=== PATIENT | female | born 1965 | race Caucasian/White ===

== ENCOUNTER → 2020-09-03 | Outpatient (CLI) | payer BC ==
[2020-09-03 13:51] VITALS: BP 143/81; PULSE 73; RESP 16; TEMP 98.2; BMI 60.0
[2020-09-03 15:40] LABS: HCT 39.6 % (34.0-46.0); HGB 12.7 gm/dL (11.4-16.0); MCH 26.1 pg (25.0-35.0); MCV 81.6 fL (80.0-100.0); Mean Platelet Volume 6.8; Platelet Count 279 k/uL (150-450); RBC 4.85 m/uL (3.80-5.40); RDW 14.9 % (11.5-15.5); WBC 9.5 k/uL (3.8-10.6)
--- NOTE | 2020-09-03 17:23 | P.HPBAR ---
Bariatric H&P - History & Physicial H&P Date: 09/03/20 History & Physicial: Visit/CC: Initial Visit Patient initial contact: Initial weight: 173.726 kg Initial weight in pounds: 383.00 Height: 5 ft 7 in Initial BMI: 60.0 Last weight: Current weight: 173.726 kg Current weight in pounds: 383.00 Current BMI: 60.0 [place] body weight (based on NIH guidelines): 61.235 kg Excess body weight loss: 0.0% The patient is a 55 year-old F who presents for Bariatric Assessment. Patient presents to discuss weight loss surgery. Patient has suffered with her morbid obesity for many years. Her father had gastric bypass in the 80s and did fairly well. He has been supportive of her plans for bariatric surgery. Current BMI of 60. Nonsmoker 5 years. History of hypertension, borderline diabetes, asthma, fibromyalgia, sleep apnea. History of mild reflux at times. Last endoscopy by Dr. Montgomery 4 years ago. No known hiatal hernia. No history of DVT or dysphagia. Past abdominal surgeries include tubal ligation and appendectomy. Review of Systems The patient denies any acute changes in vision or hearing, no dysphagia or odynophagia, no chest pain or shortness of breath, no dysuria or hematuria, no headache, no runny nose, no rectal bleeding or melena, no unexplained weight loss Past Medical History Past Medical History: Hypertension, Sleep Apnea/CPAP/BIPAP History of Any Multi-Drug Resistant Organisms: None Reported Past Surgical History: Tubal Ligation Past Anesthesia/Blood Transfusion Reactions: No Reported Reaction Past Psychological History: Anxiety, Depression Smoking Status: Former smoker Past Alcohol Use History: None Reported Additional Past Alcohol Use History / Comment(s): quit smoking 2014 Past Drug Use History: None Reported Surgical - Exam Vital Signs Temp Pulse Resp BP 98.2 F 73 16 143/81 09/03/20 13:47 09/03/20 13:47 09/03/20 13:47 09/03/20 13:47 Physical exam: General: Well-developed, well-nourished HEENT: Normocephalic, sclerae nonicteric Abdomen: Nontender, nondistended Extremities: No edema Neuro: Alert and oriented Results - Labs 09/03/20 14:58 Bariatric Assessment & Plan (1) Morbid obesity with BMI of 60.0-69.9, adult Narrative/Plan: 55-year-old female with morbid obesity. Surgical options reviewed in detail. Both gastric bypass and sleeve gastrectomy reviewed as surgical options. Risks and benefits of both procedures discussed. Patient remains interested in sleeve gastrectomy. We will plan preoperative EGD. Patient to be seen by her primary care physician. Medical clearance and support documentation will be obtained. The risks of bleeding, infection, stenosis, stricture, leak, abscess, fistula formation, peritonitis, poor weight loss, reflux, vomiting, conversion to an open procedure, aborting sleeve gastrectomy, ND, PE, DVT, and were discussed. The patient understands and wishes to proceed. Status: Acute Bariatric Checklist Checklist: Plan: Checklist: EGD: 1. Hiatal hernia: 2. H. Pylori: HgbA1c: Vitamin D: Smoking: Primary care physician referral: Monica Psychiatry clearance: Cardiology clearance: Sleep study: Diet journal: VTE risk score: VTE risk level: Rehab needs at discharge:
[2020-09-04 02:19] LABS: African American GFR (CKD) 96.2 (60.0-200.0); Albumin 4.4 g/dL (3.80-4.90); Albumin/Globulin Ratio 1.83 (1.60-3.17); BUN/Creat Ratio 31.25 Ratio (12.00-20.00); Calcium 10.5 mg/dL (8.7-10.3); Globulin 2.4 g/dL (1.6-3.3); Potassium 4.2 mmol/L (3.5-5.5); Total Bilirubin 0.3 mg/dL (0.3-1.2); Total Protein 6.8 g/dL (6.2-8.2)
[2020-09-04 04:20] LABS: Hemoglobin A1C 5.1 % (4.0-6.0)
== END | disposition home or self-care (01) ==
LOC: BARWHC3 13:31
PROVIDERS: ATTEND Surgery
DX: E66.01 Morbid (severe) obesity due to excess calories (principal); E55.9 Vitamin D deficiency, unspecified; K90.89 Other intestinal malabsorption; D50.8 Other iron deficiency anemias; Z68.44 Body mass index [BMI] 60.0-69.9, adult
CPT/HCPCS: 80053; 82306; 82607; 82746; 83036; 83540; 84425; 85027; 93005; 99201

== ENCOUNTER 2020-09-29 09:00 | Day surgery (SDC) | payer BC ==
[2020-09-28 08:46] VITALS: BMI 59.0
[~2020-09-29 09:00] MED LIST: LACTATED RINGERS 1,000 ML IV SCH
[2020-09-29 10:16] VITALS: RESP 18; TEMP 97.4
[2020-09-29] MEDS ORDERED: LIDOCAINE 1% (10MG/ML) FOR IV START INTRADERMA ONE (10:29)
[2020-09-29] MEDS ORDERED: PROPOFOL 10 MG/ML 20 ML VIAL IV ONE (10:37)
--- NOTE | 2020-09-29 10:39 | P.GSHP ---
History of Present Illness H&P Date: 09/29/20 Chief Complaint: GERD, presurgical Patient here today for upper endoscopy. She has not had one recently. Patient complains of mild intermittent reflux. Being evaluated for possible sleeve gastrectomy. No dysphagia. Past Medical History Past Medical History: Hypertension, Sleep Apnea/CPAP/BIPAP Additional Past Medical History / Comment(s): to f/u with roll plugger r/t recent ekg 10/05/20 History of Any Multi-Drug Resistant Organisms: None Reported Past Surgical History: Appendectomy, Tubal Ligation, Uterine Ablation Past Anesthesia/Blood Transfusion Reactions: No Reported Reaction Smoking Status: Former smoker Medications and Allergies Home Medications Medication Instructions Recorded Confirmed Type ALPRAZolam [Xanax] 0.25 mg PO DAILY PRN 09/03/20 09/29/20 History Escitalopram [Lexapro] 20 mg PO DAILY 09/03/20 09/29/20 History hydroCHLOROthiazide [Hydrodiuril] 12.5 mg PO DAILY 09/03/20 09/29/20 History traZODone HCL [TraZODone HCl] 50 mg PO HS 09/03/20 09/29/20 History Ergocalciferol (Vitamin D2) 50,000 unit PO WEEKLY 09/08/20 09/29/20 History [Vitamin D2 (50,000 Iu)] Cider Vinegar [Apple Cider Vinegar] 300 mg PO DAILY 09/28/20 09/29/20 History Fluticasone Nasal [place] [Flonase 1 spray EA NOSTRIL DAILY 09/28/20 09/29/20 History Nasal [place]] Multivitamins, Thera [Multivitamin 1 tab PO DAILY 09/28/20 09/29/20 History (formulary)] Allergies Allergy/AdvReac Type Severity Reaction Status Date / Time No Known Allergies Allergy Verified 09/29/20 10:19 Surgical - Exam Vital Signs Temp Pulse Resp BP Pulse Ox 97.4 F L 69 18 152/72 97 09/29/20 10:14 09/29/20 10:14 09/29/20 10:14 09/29/20 10:14 09/29/20 10:14 Physical exam: General: Well-developed, well-nourished HEENT: Normocephalic, sclerae nonicteric Abdomen: Nontender, nondistended Extremities: No edema Neuro: Alert and oriented Assessment and Plan (1) GERD (gastroesophageal reflux disease) Narrative/Plan: Will proceed with upper endoscopy Current Visit: Yes Status: Acute Code(s): K21.9 - GASTRO-ESOPHAGEAL REFLUX DISEASE WITHOUT ESOPHAGITIS SNOMED Code(s): 049618393
--- NOTE | 2020-09-29 10:50 | P.PCN ---
Date of Procedure: 09/29/20 Procedure(s) Performed: Preoperative Dx: GERD, presurgical Postoperative Dx: Gastritis Procedure: EGD with Bx Anesthesia: Sedation Endoscopist: Dr. Alexander Specimens: Antrum Endoscopic Procedure: The patient was on the endoscopy table in the left decubitus position. The Olympus gastroscope was inserted into the oropharynx and passed under direct visualization to the region of the third portion of the duodenum. From that point the scope was slowly withdrawn inspecting all surfaces carefully. There were no neoplastic inflammatory or polypoid lesions throughout the duodenum. The pylorus was widely patent. The stomach was carefully inspected. There was gastritis present. A biopsy of the antrum took place to rule out H. pylori. Retroflexion revealed a normal hiatus. The esophagus was then carefully examined. There were no neoplastic inflammatory or polypoid lesions throughout the visualized esophagus. The patient was then taken to the recovery room in stable condition per anesthesia guidelines. Recommendations: Await biopsy results. Follow-up bariatric center.
[2020-09-29 11:19] VITALS: BP 120/76; PULSE 70
== END 2020-09-29 11:45 | disposition home or self-care (01) ==
LOC: ORWHC2ENDO 09:00
PROVIDERS: ATTEND Surgery
DX: K29.50 Unspecified chronic gastritis without bleeding (principal); K31.9 Disease of stomach and duodenum, unspecified; K21.9 Gastro-esophageal reflux disease without esophagitis; I10 Essential (primary) hypertension; J45.909 Unspecified asthma, uncomplicated; G47.33 Obstructive sleep apnea (adult) (pediatric); M79.7 Fibromyalgia; F41.9 Anxiety disorder, unspecified; F32.9 Major depressive disorder, single episode, unspecified; E66.01 Morbid (severe) obesity due to excess calories; Z68.43 Body mass index [BMI] 50.0-59.9, adult; Z79.899 Other long term (current) drug therapy; Z98.51 Tubal ligation status; Z90.49 Acquired absence of other specified parts of digestive tract; Z98.890 Other specified postprocedural states; Z87.891 Personal history of nicotine dependence
CPT/HCPCS: 88305; 43239; J2704

== ENCOUNTER → 2020-10-13 | Outpatient (CLI) | payer BC ==
[2020-10-13 14:26] VITALS: BP 150/83; PULSE 78; RESP 16; TEMP 98; BMI 60.1
--- NOTE | 2020-10-13 17:16 | P.BASOAP ---
Subjective Progress Note Date: 10/13/20 Principal diagnosis: Morbid obesity Patient returns after recent EGD on 09/29. Gastritis seen. No H. pylori. Recently started chemo diet. Still interested in proceeding with sleeve gastrectomy. Objective - Vital Signs Vital signs: Vital Signs Temp 98 F 10/13/20 14:23 Pulse 78 10/13/20 14:23 Resp 16 10/13/20 14:23 BP 150/83 10/13/20 14:23 Pulse Ox Intake & Output 10/12/20 10/13/20 10/13/20 18:59 06:59 18:59 Weight 174.179 kg - Exam Abdomen: Soft, nontender, nondistended Assessment/Plan (1) Morbid obesity with BMI of 60.0-69.9, adult Narrative/Plan: 55-year-old female with morbid obesity and associated comorbidities. Patient still interested in sleeve gastrectomy. Surgical consent form with associated risks reviewed in detail. All questions answered. Tentatively plan sleeve in December after her trip to [place]. Discussed laparoscopic and robotic approaches. Patient is agreeable. Plan: Date: 10/13/20 Initial Weight: 173.726 kg Initial BMI: 60.0 Current Weight: 174.179 kg Current BMI: 60.1 Type of Surgery: Total Volume in Band: Previous Volume: Volume Removed: Volume Added: Band Size:
== END | disposition home or self-care (01) ==
LOC: BARWHC3 13:53
PROVIDERS: ATTEND Surgery
DX: E66.01 Morbid (severe) obesity due to excess calories (principal); Z68.44 Body mass index [BMI] 60.0-69.9, adult
CPT/HCPCS: 99211

== ENCOUNTER → 2020-10-19 | Outpatient (CLI) | payer BC ==
[2020-10-19 12:56] VITALS: BMI 60.3
== END ==
LOC: BARWHC3 08:45
PROVIDERS: ATTEND Surgery
DX: E66.01 Morbid (severe) obesity due to excess calories (principal); Z71.3 Dietary counseling and surveillance
CPT/HCPCS: 97804

== ENCOUNTER → 2020-12-29 | Outpatient (CLI) | payer BC ==
[2020-12-29 14:52] VITALS: BP 141/77; PULSE 82; TEMP 98.5; BMI 60.0
--- NOTE | 2020-12-29 16:05 | P.BASOAP ---
Subjective Progress Note Date: 12/29/20 Principal diagnosis: Morbid obesity Patient here for evaluation of morbid obesity. Patient is scheduled for sleeve gastrectomy next Monday. Patient recently has lost some weight after a trip to [place] for a service. She did gain some weight prior to that however. She was unable to walk much during that vacation in the airport and had to use a wheelchair. She is currently on a liquid diet. No change in medications. Objective - Vital Signs Vital signs: Vital Signs Temp 98.5 F 12/29/20 14:50 Pulse 82 12/29/20 14:50 Resp BP 141/77 12/29/20 14:50 Pulse Ox Intake & Output 12/28/20 12/29/20 12/29/20 18:59 06:59 18:59 Weight 173.726 kg - Exam Abdomen: Soft, nontender, nondistended Assessment/Plan (1) Morbid obesity with BMI of 60.0-69.9, adult Narrative/Plan: Options once again reviewed with patient. She remains interested in proceeding with laparoscopic sleeve gastrectomy. Surgery scheduled next Monday. The risks of bleeding, infection, stenosis, stricture, leak, abscess, fistula formation, peritonitis, poor weight loss, reflux, vomiting, conversion to an open procedure, aborting sleeve gastrectomy, ID, PE, DVT, and were discussed. The patient understands and wishes to proceed. Plan: Date: 12/29/20 Initial Weight: 173.726 kg Initial BMI: 60.0 Current Weight: 173.726 kg Current BMI: 60.0 Type of Surgery: Total Volume in Band: Previous Volume: Volume Removed: Volume Added: Band Size:
== END ==
LOC: BARWHC3 14:14
PROVIDERS: ATTEND Surgery
DX: E66.01 Morbid (severe) obesity due to excess calories (principal); Z68.44 Body mass index [BMI] 60.0-69.9, adult
CPT/HCPCS: 99211

== ENCOUNTER → 2020-12-29 | Outpatient (CLI) | payer BC ==
[2020-12-29 15:26] LABS: Basophils # (A) 0.1 k/uL (0-0.2); Basophils % (A) 1 %; Eosinophils # (A) 0.2 k/uL (0-0.7); Eosinophils % (A) 2 %; HGB 13.6 gm/dL (11.4-16.0); Lymphocytes # (A) 2.1 k/uL (1.0-4.8); Lymphocytes % (A) 24 %; MCH 26.4 pg (25.0-35.0); MCHC 32.3 g/dL (31.0-37.0); MCV 81.6 fL (80.0-100.0); Mean Platelet Volume 7.1; Monocytes # (A) 0.4 k/uL (0-1.0); Monocytes % (A) 4 %; Neutrophils % (A) 68 %; Platelet Count 270 k/uL (150-450); RBC 5.15 m/uL (3.80-5.40); WBC 8.8 k/uL (3.8-10.6)
[2020-12-29 15:55] LABS: ALT 43 U/L (4-34); AST 34 U/L (14-36); African American GFR (CKD) >90 (>60 ml/min/1.73 sqM); Albumin 4.4 g/dL (3.5-5.0); Alkaline Phosphatase 97 U/L (38-126); Anion Gap 10 mmol/L; Blood Urea Nitrogen 18 mg/dL (7-17); Calcium 10.3 mg/dL (8.4-10.2); Carbon Dioxide 26 mmol/L (22-30); Chloride 103 mmol/L (98-107); Glucose 101 mg/dL (74-99); Non-African American GFR(CKD) >90 (>60 ml/min/1.73 sqM); Sodium 139 mmol/L (137-145); Total Bilirubin 0.5 mg/dL (0.2-1.3); Total Protein 7.5 g/dL (6.3-8.2)
[2020-12-29 16:14] LABS: Potassium 4.3 mmol/L (3.5-5.1)
[2020-12-30 05:26] LABS: Hemoglobin A1C 5.1 % (4.0-6.0)
== END | disposition home or self-care (01) ==
LOC: LABWHC1 14:38
PROVIDERS: ATTEND Surgery
DX: Z01.812 Encounter for preprocedural laboratory examination (principal)
CPT/HCPCS: 36415; 80053; 83036; 85025

== ENCOUNTER → 2021-01-01 | Outpatient (CLI) | payer BC | END | disposition home or self-care (01) | LOC: LABPAT 14:11 | PROVIDERS: ATTEND Surgery | DX: Z53.9 Procedure and treatment not carried out, unspecified reason (principal) | CPT/HCPCS: 36415; 86850; 86900; 86901 ==

== ENCOUNTER 2021-01-04 07:45 | Inpatient (IN) | payer BC ==
[2020-12-29 08:39] VITALS: BMI 62.3
[~2021-01-04 07:45] MED LIST changes: +ACETAMINOPHEN TAB 500 MG TAB PO PRN; +ENOXAPARIN 40 MG/0.4 ML SYRINGE SQ PRN; +HYDROmorphone 0.5 MG/0.5 ML SYRINGE IVP PRN; -LACTATED RINGERS 1,000 ML IV SCH; +MIDAZOLAM 2 MG/2 ML VIAL IV PRN; +ONDANSETRON 4 MG/2 ML VIAL IVP PRN; +ceFAZolin 3 GM in SODIUM CHLORIDE 0.9% 100 ML IVPB PRN
[2021-01-04] MEDS ORDERED: DEXAMETHASONE SOD PHOSPHATE 4 MG/ML 1 ML VIAL IV ONE (11:57)
[2021-01-04] MEDS: LACTATED RINGERS 1,000 ML IV SCH (11:57)
--- NOTE | 2021-01-04 12:31 | P.GSHP ---
History of Present Illness H&P Date: 01/04/21 Chief Complaint: Morbid obesity 55-year-old female presents for elective sleeve gastrectomy. Patient initially seen in August. Complains of hypertension, borderline diabetes, asthma, fibromyalgia, sleep apnea, mild reflux. BMI 62 at this time. Denies history of DVT or dysphagia. Recent upper endoscopy showed gastritis. Past Medical History Past Medical History: Hypertension, Sleep Apnea/CPAP/BIPAP Additional Past Medical History / Comment(s): to f/u with early childhood teacher r/t recent ekg 10/05/20 History of Any Multi-Drug Resistant Organisms: None Reported Past Surgical History: Appendectomy, Tubal Ligation, Uterine Ablation Past Anesthesia/Blood Transfusion Reactions: No Reported Reaction Additional Past Anesthesia/Blood Transfusion Reaction / Comment(s): dad slower to come out of anesthesia as he got older Past Psychological History: Anxiety, Depression Smoking Status: Former smoker Past Alcohol Use History: None Reported Additional Past Alcohol Use History / Comment(s): quit smoking 2014 Past Drug Use History: None Reported - Past Family History Mother Family Medical History: No Reported History Medications and Allergies Home Medications Medication Instructions Recorded Confirmed Type ALPRAZolam [Xanax] 0.25 mg PO DAILY PRN 09/03/20 01/04/21 History Escitalopram [Lexapro] 20 mg PO DAILY 09/03/20 01/04/21 History traZODone HCL [TraZODone HCl] 50 mg PO HS 09/03/20 01/04/21 History Ergocalciferol (Vitamin D2) 50,000 unit PO WEEKLY 09/08/20 12/30/20 History [Vitamin D2 (50,000 Iu)] Cider Vinegar [Apple Cider Vinegar] 300 mg PO DAILY 09/28/20 12/30/20 History Multivitamins, Thera [Multivitamin 1 tab PO DAILY 09/28/20 12/30/20 History (formulary)] Albuterol Inhaler [Ventolin Hfa 1 puff INHALATION DAILY PRN 12/29/20 12/30/20 History Inhaler] Cannabidiol (Cbd) [Epidiolex] 1 dose PO DAILY PRN 12/29/20 12/30/20 History Allergies Allergy/AdvReac Type Severity Reaction Status Date / Time No Known Allergies Allergy Verified 01/04/21 11:26 Surgical - Exam Vital Signs Temp Pulse Resp BP Pulse Ox 97.1 F L 74 18 140/71 95 01/04/21 11:33 01/04/21 11:33 01/04/21 11:33 01/04/21 11:33 01/04/21 11:33 Physical exam: General: Well-developed, well-nourished HEENT: Normocephalic, sclerae nonicteric Abdomen: Nontender, nondistended Extremities: No edema Neuro: Alert and oriented Assessment and Plan (1) Morbid obesity with BMI of 60.0-69.9, adult Narrative/Plan: Will proceed with laparoscopic, possible open sleeve gastrectomy. The risks of bleeding, infection, stenosis, stricture, leak, abscess, fistula formation, peritonitis, poor weight loss, reflux, vomiting, conversion to an open procedure, aborting sleeve gastrectomy, [place], PE, DVT, and were discussed. The patient understands and wishes to proceed. Current Visit: No Status: Acute Code(s): E66.01 - MORBID (SEVERE) OBESITY DUE TO EXCESS CALORIES; Z68.44 - BODY MASS INDEX [BMI] 60.0-69.9, ADULT SNOMED Code(s): 184742048
[2021-01-04] MEDS ORDERED: MIDAZOLAM 2 MG/2 ML VIAL ONE (14:04)
[2021-01-04] MEDS ORDERED: LIDOCAINE 1% INJ 10MG/ML (20 ML MDV) ONE (14:04)
[2021-01-04] MEDS ORDERED: fentaNYL (PF) 50 MCG/ML 2 ML AMP ONE (14:04)
[2021-01-04] MEDS ORDERED: GLYCOPYRROLATE 0.2 MG/ML 2 ML VIAL ONE (14:04)
[2021-01-04] MEDS ORDERED: ROCURONIUM 10 MG/ML (5 ML VIAL) IV ONE (14:04)
[2021-01-04] MEDS ORDERED: BUPIVACAIN-EPI 0.5%-1:200,000 30 ML VIAL SQ ONE ×2 (14:04)
[2021-01-04] MEDS ORDERED: NEOSTIGMINE 1 MG/ML 10 ML VIAL ONE (14:04)
[2021-01-04] MEDS ORDERED: HYDROmorphone (PF) 1 MG/ML ONE (14:04)
[2021-01-04] MEDS ORDERED: PROPOFOL 10 MG/ML 20 ML VIAL IV ONE (14:04)
[2021-01-04] MEDS ORDERED: SUCCINYLCHOLINE CHLORIDE VIAL 200 MG/10 ML VIAL IV ONE (14:04)
[2021-01-04] MEDS ORDERED: LACTATED RINGERS 1,000 ML IV ONE (15:24)
[2021-01-04] MEDS ORDERED: diphenhydrAMINE 50 MG/ML 1 ML VIAL IVP PRN (15:39)
[2021-01-04] MEDS ORDERED: HYOSCYAMINE ORAL DROPS 1.875 MG/15 ML BOTTLE PO PRN (15:39)
[2021-01-04] MEDS ORDERED: NALOXONE 0.4 MG/ML 1 ML VIAL IV PRN (15:39)
--- NOTE | 2021-01-04 15:44 | P.OP ---
Date of Procedure: 01/04/21 Procedure(s) Performed: PREOPERATIVE DIAGNOSIS: Morbid obesity, GERD, hypertension, asthma, sleep apnea POSTOPERATIVE DIAGNOSIS: Same PROCEDURE: Laparoscopic sleeve gastrectomy SURGEON: Catherine EBL: Minimal ANESTHESIA: General COMPLICATIONS: None OPERATIVE PROCEDURE: Patient was placed in the operating table in the supine position. She was placed under general anesthesia at that time. The abdomen was prepped and draped in sterile fashion after the patient was placed in lithotomy. A 5 mm optical trocar was used to enter the abdominal cavity in the left upper quadrant. Insufflation took place to 15 millimeters mercury. An additional right subxiphoid 5 mm trocar was then placed under direct visuali zation and then removed. 2 additional 5 mm trochars were placed in the right upper quadrant and left upper quadrant under direct visualization and a 15 mm trocar in the supraumbilical location. The liver was retracted using a medium Maye liver retractor through the right subxiphoid trocar site. The hiatus was inspected. The patient had no visible hiatal hernia At that point I moved to the mid aspect of the greater curvature the stomach. The short gastric vasculature was divided using a LigaSure device proximally. I then switched and divided the short gastrics distally to a 3-4 cm from the pylorus. The dissection took place up to the left diaphragmatic crura at that point. The posterior short gastrics were likewise divided using the LigaSure device. Once the stomach was fully mobilized the blunt tipped 40-Bel[place]ian bougie dilator was advanced into the stomach and advanced all the way to the prepyloric location. A black echelon 60 stapler with Endopath staple line reinforcement was utilized and fired tangentially across the antrum taking care to avoid narrowing at the incisura angularis. Subsequent firings of the stapler took place. A total of 5 green echelon 60 staplers with Endopath staple line reinforcement took place proximally staying on the outer edge of our dilator. Once we reached the most proximal portion of the stomach a single firing of the gold echelon 60 stapler without seen guard took place. The oral gastric tube was reinserted. The stomach was insufflated with approximately 100 mL of methylene blue. No evidence of leak or obstruction was seen. Tisseel fibrin glue was used along the length of the staple line. There was a small area of oozing at the distal aspect of the staple line that was controlled using 312 mm clips. The stomach remnant was removed from the 15 mm trocar site without difficulty. The fascia at the 15 more site was closed using interrupted 0 Vicryl sutures with the laparoscopic suture passer and Marcos Talya technique. The insufflation was evacuated. The skin at all 5 incisions were closed using 4-0 Monocryl sutures. Skin glue was then applied. DISPOSITION: Stable to recovery room
[2021-01-04] MEDS ORDERED: ONDANSETRON 4 MG/2 ML VIAL IVP ONE (16:01)
[2021-01-04] MEDS: 0.9% NACL WITH KCL 20 MEQ/L 1,000 ML IV SCH ×2 (16:53→23:01)
[2021-01-04] MEDS: ALBUTEROL NEBULIZED 2.5 MG/3 ML INHALATION SCH ×2 (16:55→21:55)
[2021-01-04] MEDS: ACETAMINOPHEN IV (For NPO) 1,000 MG in EMPTY BAG 1 BAG IVPB SCH (16:58)
[2021-01-04] MEDS: SIMETHICONE 40 MG/0.6 ML DROPS 2,000 MG/30 ML BOTTLE PO PRN (17:56)
[2021-01-04] MEDS: HYDROmorphone 1 MG/ML 1 ML SYRINGE IVP PRN (21:32)
[2021-01-05] MEDS: ACETAMINOPHEN IV (For NPO) 1,000 MG in EMPTY BAG 1 BAG IVPB SCH ×3 (01:13→11:14)
[2021-01-05] MEDS: ENOXAPARIN 40 MG/0.4 ML SYRINGE SQ SCH ×2 (01:13→13:18)
[2021-01-05] MEDS: SIMETHICONE 40 MG/0.6 ML DROPS 2,000 MG/30 ML BOTTLE PO PRN ×3 (01:16→16:48)
[2021-01-05] MEDS: LACTATED RINGERS 1,000 ML IV SCH ×2 (01:41→20:54)
[2021-01-05] MEDS: HYDROmorphone 1 MG/ML 1 ML SYRINGE IVP PRN ×3 (03:30→20:14)
[2021-01-05] MEDS: 0.9% NACL WITH KCL 20 MEQ/L 1,000 ML IV SCH (03:31)
[2021-01-05] MEDS: PANTOPRAZOLE 40 MG/10 ML VIAL IV SCH (07:01)
[2021-01-05] MEDS: 1: MVI, ADULT NO.4 WITH VIT K 10 ML, THIAMINE 100 MG, FOLIC ACID 1 MG, POTASSIUM CHLORID IV SCH ×12 (08:03→20:16)
[2021-01-05] MEDS: ALBUTEROL NEBULIZED 2.5 MG/3 ML INHALATION SCH ×5 (08:04→20:45)
[2021-01-05 09:44] LABS: Basophils # (A) 0.01 X 10*3/uL (0.00-0.10); Basophils % (A) 0.1 %; Eosinophils # (A) 0 X 10*3/uL (0.04-0.35); Eosinophils % (A) 0 %; HCT 37.2 % (37.2-46.3); HGB 11.7 g/dL (12.0-15.0); Lymphocytes # (A) 1.16 X 10*3/uL (0.90-5.00); Lymphocytes % (A) 10.3 %; MCH 26.7 pg (27.0-32.0); MCHC 31.5 g/dL (32.0-37.0); MCV 84.9 fL (80.0-97.0); Mean Platelet Volume 10.1 fL (9.5-12.2); Monocytes # (A) 0.78 X 10*3/uL (0.20-1.00); Monocytes % (A) 6.9 %; Neutrophils # (A) 9.29 X 10*3/uL (1.80-7.70); Neutrophils % (A) 82.2 %; Platelet Count 271 X 10*3/uL (140-440); RBC 4.38 X 10*6/uL (4.10-5.20); RDW 14.8 % (11.5-14.5)
[2021-01-05] MEDS: ONDANSETRON 4 MG/2 ML VIAL IVP PRN ×2 (11:20→20:23)
[2021-01-05] MEDS: LISINOPRIL-HCTZ 10-12.5 MG 1 EACH TAB PO SCH (11:35)
--- NOTE | 2021-01-05 12:51 | P.PN ---
<Olamide Ivey - Last Filed: 01/05/21 12:46> Subjective Progress Note Date: 01/05/21 CHIEF COMPLAINT: Morbid obesity HISTORY OF PRESENT ILLNESS: Patient is status post laparoscopic sleeve gastrectomy. She had her upper GI completed today. Results are pending. She is complaining of some gas pains. Otherwise her pain is controlled. Denies any nausea or vomiting. She denies passing gas or having a bowel movement yet. I she is urinating without difficulty. She has been up and ambulating. Afebrile. WBC 11.30 hemoglobin 11.7 platelets 271 PHYSICAL EXAM: VITAL SIGNS: Reviewed. GENERAL: Well-developed in no acute distress. HEENT: No sclera icterus. Extraocular movements grossly intact. Moist buccal mucosa. Head is atraumatic, normocephalic. ABDOMEN: Soft. Nondistended. Incision sites clean dry and intact NEUROLOGIC: Alert and oriented. Cranial nerves II through XII grossly intact. ASSESSMENT: 1. Morbid obesity status post laparoscopic sleeve gastrectomy 2. GERD 3. Hypertension 4. Asthma 5. Sleep apnea PLAN: -Awaiting upper GI results to start bariatric clear liquid diet -Continue IV fluids -Continue pain medication as needed -Continue the simethicone and Levsin drops -Medicine on consulted for medical management -Encourage patient to ambulate and to use incentive spirometer -GI prophylaxis Protonix and DVT prophylaxis Lovenox Physician Technical Editor note has been reviewed by physician. Signing provider agrees with the documented findings, assessment, and plan of care. Objective - Vital Signs Vital signs: Vital Signs Temp 98.8 F 01/05/21 08:00 Pulse 56 L 01/05/21 08:06 Resp 19 01/05/21 08:00 BP 128/74 01/05/21 08:00 Pulse Ox 92 L 01/05/21 09:01 Intake & Output 01/04/21 01/05/21 01/05/21 18:59 06:59 18:59 Intake Total 1500 Output Total 10 300 Balance 1490 -300 Weight 180.53 kg 180.53 kg Intake: IV 1500 Output: Urine 300 Estimated Blood Loss 10 - Labs CBC & Chem 7: 01/05/21 05:44 Labs: Abnormal Lab Results - Last 24 Hours (Table) 01/05/21 Range/Units 05:44 WBC 11.30 H (4.50-10.00) X 10*3/uL Hgb 11.7 L (12.0-15.0) g/dL MCH 26.7 L (27.0-32.0) pg MCHC 31.5 L (32.0-37.0) g/dL RDW 14.8 H (11.5-14.5) % Immature Gran # 0.06 H (0.00-0.04) X 10*3/uL Neutrophils # 9.29 H (1.80-7.70) X 10*3/uL Eosinophils # 0 L (0.04-0.35) X 10*3/uL <Shayne Alexander - Last Filed: 01/05/21 15:26> Subjective Patient doing well today. Denies nausea or vomiting. Upper GI shows no evidence of leak or obstruction. Begin bariatric liquids. Objective - Vital Signs Vital signs: Vital Signs Temp 97.8 F 01/05/21 13:28 Pulse 60 01/05/21 13:28 Resp 16 01/05/21 13:28 BP 112/73 01/05/21 13:28 Pulse Ox 93 L 01/05/21 13:28 Intake & Output 01/04/21 01/05/21 01/05/21 18:59 06:59 18:59 Intake Total 1500 Output Total 10 300 Balance 1490 -300 Weight 180.53 kg 180.53 kg Intake: IV 1500 Output: Urine 300 Estimated Blood Loss 10 Other: # Voids 1 - Labs CBC & Chem 7: 01/05/21 05:44 01/05/21 05:44 Labs: Abnormal Lab Results - Last 24 Hours (Table) 01/05/21 Range/Units 05:44 WBC 11.30 H (4.50-10.00) X 10*3/uL Hgb 11.7 L (12.0-15.0) g/dL MCH 26.7 L (27.0-32.0) pg MCHC 31.5 L (32.0-37.0) g/dL RDW 14.8 H (11.5-14.5) % Immature Gran # 0.06 H (0.00-0.04) X 10*3/uL Neutrophils # 9.29 H (1.80-7.70) X 10*3/uL Eosinophils # 0 L (0.04-0.35) X 10*3/uL Assessment and Plan (1) Morbid obesity with BMI of 60.0-69.9, adult Current Visit: Yes Status: Acute Code(s): E66.01 - MORBID (SEVERE) OBESITY DUE TO EXCESS CALORIES; Z68.44 - BODY MASS INDEX [BMI] 60.0-69.9, ADULT SNOMED Code(s): 824912250
--- NOTE | 2021-01-05 13:34 | FL ---
EXAMINATION TYPE: FL UGI DATE OF EXAM: 01/05/2021 LIMITED UGI: CLINICAL HISTORY: Morbid Obesity, lap band placed earlier today. TECHNIQUE: Limited esophagram is performed utilizing 5 oz of Omnipaque 350. A total of 39 seconds of fluoroscopic time was utilized during procedure. COMPARISON: None. FINDINGS: The patient swallowed contrast without difficulty or delay. Esophageal peristalsis and mo tility are within normal limits. There is good flow of contrast along the diaphragmatic hiatus into proximal stomach and subsequent flow into gastric sleeve. There is no evidence of contrast extravasa tion to suggest leak. The patient complained of pain and sat down. There is gas in the proximal duode num but contrast was not seen within the proximal duodenum. IMPRESSION: No evidence of leak or significant obstruction status post recent gastric sleeve surgery. Contrast is not seen in the proximal duodenum as the patient sat down. There is gas seen within the proximal duodenum.
[2021-01-05 14:39] LABS: Anion Gap 11.5 mmol/L (4.00-12.00); Calcium 9.1 mg/dL (8.7-10.3); Carbon Dioxide 22.5 mmol/L (21.6-31.8); Non-African American GFR(CKD) 97.5 (60.0-200.0); Phosphorus 3.5 mg/dL (2.4-5.1); Potassium 5.1 mmol/L (3.5-5.5)
--- NOTE | 2021-01-05 16:58 | P.CONS ---
History of Present Illness - Reason for Consult Consult date: 01/05/21 Medical management Requesting physician: Shayne Alexander - Chief Complaint Abdominal surgery - History of Present Illness Consultation: This is a very pleasant 55-year-old patient, follows with Dr. Silvestre. Chronic stable medical conditions include hypertension, obstructive sleep apnea, insomnia, depression and anxiety, chronic foot pain from heel spur, constipation. Patient has undergone laparoscopic sleeve gastrectomy by Dr. Garcia. Postprocedure no nausea vomiting. Slight bloating and gas feeling in the abdomen. Has been out of bed. Patient is pending. Barium Study this morning. Patient has not been taking blood pressure medication because of feeling dehydra nina. At home Review of systems: GEN.: Tired EYES: None HEENT: None NECK: None RESPIRATORY: None CARDIOVASCULAR: None GASTROINTESTINAL: Bloating] GENITOURINARY: Urinary stress incontinence MUSCULOSKELETAL: Bilateral foot pain LYMPHATICS: None HEMATOLOGICAL: None PSYCHIATRY: None NEUROLOGICAL: None Past medical history to include: Hypertension, arthritis sleep apnea, insomnia, constipation, depression and anxiety, urinary stress incontinence, bilateral heel spur Social history: . No history of smoking or alcohol. Physical examination: VITAL SIGNS: 98.8, 57, 19, 1 28 x 74, 95% on 2 L GENERAL: BMI 62.3, reclining in bed, awake, comfortable. EYES: Pupils equal. Conjunctiva normal. HEENT: External appearance of nose and ears normal, oral cavity grossly normal. NECK: JVD not raised; masses not palpable. HEART: Heart sounds muffled; no edema. LUNGS:[ Respiratory rate normal; distant breath sounds. ABDOMEN: Soft, mild tenderness, no guarding rigidity, liver spleen not palpable, no masses palpable. PSYCH: Alert and oriented x3; mood and affect normal. NEUROLOGICAL: Cranial nerves grossly intact; no facial asymmetry, power and sensation grossly intact. LYMPHATICS: No lymph nodes palpable in the axilla and neck INVESTIGATIONS, reviewed in the clinical context: WBC 11.3 hemoglobin 11.7 platelets 271 potassium 5.1 creatinine 0.7 Coronavirus [PCR]-not detected Assessment and plan: -Laparoscopic sleeve gastrectomy Pending barium study upper GI -Morbid obesity BMI 62.3 Weight loss measures -Chronic constipation Laxatives as indicated -Bilateral heel spurs Patient takes CBD on for the same -Chronic urinary stress incontinence -Normocytic anemia We will order iron studies, B12 Further workup as outpatient by Dr. Silvestre -Essential hypertension Importance of taking antihypertensive discussed with the patient. We'll start the patient on Zestoretic /.5 one tablet daily. -Chronic idiopathic insomnia Continue with trazodone -Anxiety and depression Continue with Xanax and Lexapro -Obstructive sleep apnea Continue with CPAP Care was discussed with the patient. Questions answered. Patient to follow-up with Dr. Silvestre upon discharge. Thank you Dr. Garcia Past Medical History Past Medical History: Hypertension, Sleep Apnea/CPAP/BIPAP Additional Past Medical History / Comment(s): to f/u with technology auditor r/t recent ekg 10/05/20 History of Any Multi-Drug Resistant Organisms: None Reported Past Surgical History: Appendectomy, Tubal Ligation, Uterine Ablation Past Anesthesia/Blood Transfusion Reactions: No Reported Reaction Additional Past Anesthesia/Blood Transfusion Reaction / Comm: dad slower to come out of anesthesia as he got older Past Psychological History: Anxiety, Depression Smoking Status: Former smoker Past Alcohol Use History: None Reported Additional Past Alcohol Use History / Comment(s): quit smoking 2014 Past Drug Use History: None Reported Additional Drug Use History / Comment(s): cbd - Past Family History Mother Family Medical History: No Reported History Medications and Allergies Home Medications Medication Instructions Recorded Confirmed Type ALPRAZolam [Xanax] 0.25 mg PO DAILY PRN 09/03/20 01/04/21 History Escitalopram [Lexapro] 20 mg PO DAILY 09/03/20 01/04/21 History traZODone HCL [TraZODone HCl] 50 mg PO HS 09/03/20 01/04/21 History Ergocalciferol (Vitamin D2) 50,000 unit PO WEEKLY 09/08/20 12/30/20 History [Vitamin D2 (50,000 Iu)] Cider Vinegar [Apple Cider Vinegar] 300 mg PO DAILY 09/28/20 12/30/20 History Multivitamins, Thera [Multivitamin 1 tab PO DAILY 09/28/20 12/30/20 History (formulary)] Albuterol Inhaler [Ventolin Hfa 1 puff INHALATION DAILY PRN 12/29/20 12/30/20 History Inhaler] Cannabidiol (Cbd) [Epidiolex] 1 dose PO DAILY PRN 12/29/20 12/30/20 History Allergies Allergy/AdvReac Type Severity Reaction Status Date / Time No Known Allergies Allergy Verified 01/04/21 11:26 Physical Exam Vitals: Vital Signs Temp Pulse Pulse Pulse Pulse Resp BP 01/05/21 09:01 01/05/21 08:06 56 L 01/05/21 08:00 98.8 F 57 L 19 01/05/21 07:30 19 01/05/21 01:52 98.4 F 63 18 01/04/21 21:55 01/04/21 19:46 97.6 F 49 L 16 01/04/21 17:30 60 01/04/21 17:15 54 L 01/04/21 17:05 01/04/21 17:00 50 L 01/04/21 16:46 98.1 F 80 16 01/04/21 16:28 50 L 16 01/04/21 16:15 49 L 16 01/04/21 16:00 48 L 14 01/04/21 15:45 97.0 F L 55 L 12 01/04/21 11:33 97.1 F L 74 18 140/71 BP Pulse Ox 01/05/21 09:01 92 L 01/05/21 08:06 96 01/05/21 08:00 128/74 95 01/05/21 07:30 01/05/21 01:52 147/75 96 01/04/21 21:55 93 L 01/04/21 19:46 144/76 97 01/04/21 17:30 124/72 01/04/21 17:15 102/63 01/04/21 17:05 97 01/04/21 17:00 125/72 01/04/21 16:46 161/74 97 01/04/21 16:28 132/61 99 01/04/21 16:15 131/63 98 01/04/21 16:00 124/58 97 01/04/21 15:45 120/59 96 01/04/21 11:33 95 Intake and Output 01/04/21 01/05/21 01/05/21 22:59 06:59 14:59 Intake Total 400 Output Total 10 300 Balance 390 -300 Intake: IV 400 Output: Urine 300 Estimated Blood Loss 10 Other: Weight 180.53 kg Results CBC & Chem 7: 01/05/21 05:44 01/05/21 05:44 Labs: Abnormal Lab Results - Last 24 Hours (Table) 01/05/21 Range/Units 05:44 WBC 11.30 H (4.50-10.00) X 10*3/uL Hgb 11.7 L (12.0-15.0) g/dL MCH 26.7 L (27.0-32.0) pg MCHC 31.5 L (32.0-37.0) g/dL RDW 14.8 H (11.5-14.5) % Immature Gran # 0.06 H (0.00-0.04) X 10*3/uL Neutrophils # 9.29 H (1.80-7.70) X 10*3/uL Eosinophils # 0 L (0.04-0.35) X 10*3/uL
[2021-01-06] MEDS: ENOXAPARIN 40 MG/0.4 ML SYRINGE SQ SCH ×2 (01:51→13:14)
[2021-01-06] MEDS: 1: MVI, ADULT NO.4 WITH VIT K 10 ML, THIAMINE 100 MG, FOLIC ACID 1 MG, POTASSIUM CHLORID IV SCH ×6 (05:19)
[2021-01-06] MEDS: SIMETHICONE 40 MG/0.6 ML DROPS 2,000 MG/30 ML BOTTLE PO PRN (05:20)
[2021-01-06] MEDS: ALBUTEROL NEBULIZED 2.5 MG/3 ML INHALATION SCH ×2 (07:58→11:23)
[2021-01-06] MEDS ORDERED: bisacodyL 5 MG TABLET.DR PO PRN (08:00)
[2021-01-06 08:01] VITALS: RESP 18
[2021-01-06] MEDS: LISINOPRIL-HCTZ 10-12.5 MG 1 EACH TAB PO SCH (08:24)
[2021-01-06] MEDS: PANTOPRAZOLE 40 MG/10 ML VIAL IV SCH (08:24)
[2021-01-06 11:03] LABS: % Iron Saturation 9.09 (12.00-45.00)
--- NOTE | 2021-01-06 12:53 | P.DS ---
<Olamide Ivey - Last Filed: 01/06/21 12:51> Providers Expected date of discharge: 01/06/21 Hospital Course: Discharge diagnosis 1. Morbid obesity status post laparoscopic sleeve gastrectomy 2. GERD 3. Hypertension 4. Asthma 5. Sleep apnea Hospital course 55-year-old female presents for elective sleeve gastrectomy. Patient initially seen in August. Complains of hypertension, borderline diabetes, asthma, fibromyalgia, sleep apnea, mild reflux. BMI 62 at this time. Denies history of DVT or dysphagia. Recent upper endoscopy showed gastritis. Patient is status post laparoscopic sleeve gastrectomy. She tolerated surgery well. Upper GI showed no evidence of leak or obstruction. She is tolerating bariatric clear liquid diet. Her pain is controlled. She is having flatus. She's afebrile. She is up and ambulating. She is stable for discharge. Please refer to chart for any further details. Physician Braille Typist note has been reviewed by physician. Signing provider agrees with the documented findings, assessment, and plan of care. Patient Condition at Discharge: Stable Plan - Discharge Summary Discharge Rx Participant: Yes New Discharge Prescriptions: New Simethicone 40 mg/0.6 ml Drops [Mylicon Drops] 40 mg PO PCHS PRN #30 ml PRN Reason: Gas Omeprazole [PriLOSEC] 40 mg PO DAILY #30 capsule. Ondansetron Odt [Zofran Odt] 4 mg PO Q8HR PRN #9 tab PRN Reason: Nausea bisacodyL [Dulcolax] 5 mg PO DAILY PRN #10 tablet. PRDov Reason: Constipation HYDROcodone/APAP 5-325MG [[place] 5] 1 each PO Q6HR PRN #10 tab PRN Reason: Pain Lisinopril-Hctz 10-12.5 mg [Zestoretic 10-12.5] 1 each PO DAILY #30 tab Continue ALPRAZolam [Xanax] 0.25 mg PO DAILY PRN PRN Reason: Anxiety traZODone HCL 50 mg PO HS Escitalopram [Lexapro] 20 mg PO DAILY Albuterol Inhaler [Ventolin Hfa Inhaler] 1 puff INHALATION DAILY PRN PRN Reason: Dyspnea Discontinued Ergocalciferol (Vitamin D2) [Vitamin D2 (50,000 Iu)] 50,000 unit PO WEEKLY Multivitamins, Thera [Multivitamin (formulary)] 1 tab PO DAILY Cider Vinegar [Apple Cider Vinegar] 300 mg PO DAILY Cannabidiol (Cbd) [Epidiolex] 1 dose PO DAILY PRN PRN Reason: Anxiety Discharge Medication List ALPRAZolam [Xanax] 0.25 mg PO DAILY PRN 09/03/20 [History] Escitalopram [Lexapro] 20 mg PO DAILY 09/03/20 [History] traZODone HCL 50 mg PO HS 09/03/20 [History] Albuterol Inhaler [Ventolin Hfa Inhaler] 1 puff INHALATION DAILY PRN 12/29/20 [History] HYDROcodone/APAP 5-325MG [[place] 5] 1 each PO Q6HR PRN #10 tab 01/06/21 [Rx] Lisinopril-Hctz 10-12.5 mg [Zestoretic 10-12.5] 1 each PO DAILY #30 tab 01/06/21 [Rx] Omeprazole [PriLOSEC] 40 mg PO DAILY #30 capsule. 01/06/21 [Rx] Ondansetron Odt [Zofran Odt] 4 mg PO Q8HR PRN #9 tab 01/06/21 [Rx] Simethicone 40 mg/0.6 ml Drops [Mylicon Drops] 40 mg PO PCHS PRN #30 ml 01/06/21 [Rx] bisacodyL [Dulcolax] 5 mg PO DAILY PRN #10 tablet. 01/06/21 [Rx] Follow up Appointment(s)/Referral(s): Shalom Silvestre MD [Primary Care Provider] - 1 Week Bariatric [place], [place] [NON-STAFF] - 01/12/21 2:30 am Patient Instructions/Handouts: Nutrition after Bariatric Surgery (DC), Laparoscopic Sleeve Gastrectomy (DC) Activity/Diet/Wound Care/Special Instructions: Medicine service script for blood pressure medication No driving while taking [place] No lifting over 10 pounds You may shower. No soaking or tub baths for 2 weeks Very light activity until you are reevaluated at your follow up appointment with your surgeon No straws or carbonated beverages Cut or crush all pills to the size smaller than a tic tac Hold on taking any vitamins for 1 week Discharge Disposition: HOME SELF-CARE <Shayne Alexander Last Filed: 01/07/21 12:22> Providers Date of admission: 01/04/21 11:12 Attending physician: Shayne Alexander Consults: 01/05/21 10:58 Consult Physician Routine Consulting Provider: Juan Adames Consult Reason/Comments: medical management Do you want consulting provider notified?: Yes Primary care physician: Shalom Silvestre - Discharge Diagnosis(es) (1) Morbid obesity with BMI of 60.0-69.9, adult Status: Acute Hospital Course: As above. Patient doing well. May discharge. Follow-up in 1 week.
[2021-01-06 14:50] VITALS: BP 136/72; PULSE 61; TEMP 98.8
--- NOTE | 2021-01-06 20:03 | P.PN ---
Progress Note - Text Progress Note Date: 01/06/21 - Chief Complaint Abdominal surgery Consultation: This is a very pleasant 55-year-old patient, follows with Dr. Alexander. Chronic stable medical conditions include hypertension, obstructive sleep apnea, insomnia, depression and anxiety, chronic foot pain from heel spur, constipation. Patient has undergone laparoscopic sleeve gastrectomy by Dr. Garcia. Postprocedure no nausea vomiting. Slight bloating and gas feeling in the abdomen. Has been out of bed. Patient is pending. Barium Study this morning. Patient has not been taking blood pressure medication because of feeling dehydrated. Today: Doing well. Has been out of bed. Did tolerate a liquid diet. Did pass flatus. Patient be started on lisinopril HCl. Discussed at length about daily blood pressure monitoring. And follow-up with PCP. Review of systems: Was done for constitutional, cardiovascular, GI, pulmonary. relevant finding as above Current medications reviewed in today's electronic records Past medical history to include: Hypertension, arthritis sleep apnea, insomnia, constipation, depression and anxiety, urinary stress incontinence, bilateral heel spur Social history: . No history of smoking or alcohol. Physical examination: VITAL SIGNS: 98.6, 71, 18, 1 54 x 83, 94% room air GENERAL: BMI 62.3, reclining in bed, awake, comfortable. EYES: Pupils equal. Conjunctiva normal. NECK: JVD not raised; masses not palpable. HEART: Heart sounds muffled; no edema. LUNGS:[ Respiratory rate normal; distant breath sounds. ABDOMEN: Soft, mild tenderness, no guarding rigidity, liver spleen not palpable, no masses palpable. PSYCH: Alert and oriented x3; mood and affect normal. INVESTIGATIONS, reviewed in the clinical context: Iron 24 TIBC 264% saturation 9.09 vitamin B12 515 WBC 11.3 hemoglobin 11.7 platelets 271 potassium 5.1 creatinine 0.7 Coronavirus [PCR]-not detected Assessment and plan: -Laparoscopic sleeve gastrectomy Pending barium study upper GI -Morbid obesity BMI 62.3 Weight loss measures -Chronic constipation Laxatives as indicated -Bilateral heel spurs Patient takes CBD on for the same -Chronic urinary stress incontinence -Normocytic anemia, iron deficiency anemia Further workup as outpatient by Dr. Alexander -Essential hypertension Importance of taking antihypertensive discussed with the patient. started on Zestoretic 06/01.5 one tablet daily. -Chronic idiopathic insomnia Continue with trazodone -Anxiety and depression Continue with Xanax and Lexapro -Obstructive sleep apnea Continue with CPAP Further workup as outpatient by Dr. Alexander for iron deficiency anemia.copy of dictation sent to dr alexander Thank you Dr. Garcia
== END 2021-01-06 15:12 | disposition home or self-care (01) | DRG 621 ==
LOC: 2ORMAIN 11:12 → 4SSUR 15:44
PROVIDERS: ADMIT Surgery; ATTEND Surgery
PROC: 0DB64Z3 Excision of Stomach, Percutaneous Endoscopic Approach, Vertical (ICD-10-PCS; principal; 2021-01-04 13:00)
DX: E66.01 Morbid (severe) obesity due to excess calories (principal); D50.9 Iron deficiency anemia, unspecified; F32.9 Major depressive disorder, single episode, unspecified; F41.9 Anxiety disorder, unspecified; F51.01 Primary insomnia; G47.33 Obstructive sleep apnea (adult) (pediatric); Z99.89 Dependence on other enabling machines and devices; G89.29 Other chronic pain; I10 Essential (primary) hypertension; J45.909 Unspecified asthma, uncomplicated; K21.9 Gastro-esophageal reflux disease without esophagitis; K59.09 Other constipation; M77.31 Calcaneal spur, right foot; M77.32 Calcaneal spur, left foot; M79.7 Fibromyalgia; N39.3 Stress incontinence (female) (male); R73.03 Prediabetes; Z68.44 Body mass index [BMI] 60.0-69.9, adult; Z79.899 Other long term (current) drug therapy; Z87.891 Personal history of nicotine dependence; Z98.51 Tubal ligation status; Z90.49 Acquired absence of other specified parts of digestive tract
CPT/HCPCS: 36415; 74240; 80051; 80053; 82310; 82565; 82607; 83036; 83540; 83550; 83735; 84100; 84520; 85025; 86850; 86900; 86901; 87635; 88307; 94640; 94760

== ENCOUNTER → 2021-01-12 | Outpatient (CLI) | payer BC ==
[2021-01-12 15:23] VITALS: BP 124/74; PULSE 73; TEMP 98.6; BMI 56.9
--- NOTE | 2021-01-12 17:42 | P.BASOAP ---
Subjective Progress Note Date: 01/12/21 Principal diagnosis: Morbid obesity Patient returns after sleeve gastrectomy last week. Overall doing fairly well. Mild soreness. Tolerating liquids. She is already had 30 ounces of liquids today. She is oriented had 60 g of protein today. No reflux symptoms. Heart rate is normal. Slow weight loss appreciated. No fevers. Objective - Vital Signs Vital signs: Vital Signs Temp 98.6 F 01/12/21 15:03 Pulse 73 01/12/21 15:03 Resp BP 124/74 01/12/21 15:03 Pulse Ox Intake & Output 01/11/21 01/12/21 01/12/21 18:59 06:59 18:59 Weight 165.108 kg - Exam Abdomen: Soft, nondistended, incisions clean and dry, minimal tenderness Assessment/Plan (1) Morbid obesity with BMI of 60.0-69.9, adult Narrative/Plan: Overall patient doing well after recent sleeve gastrectomy. Continue full liquids. Patient will be seen by dietary. Follow-up 2-3 weeks. May return to work in 2 weeks. Plan: Date: 01/12/21 Initial Weight: 173.726 kg Initial BMI: 60.0 Current Weight: 165.108 kg Current BMI: 56.9 Type of Surgery: Total Volume in Band: Previous Volume: Volume Removed: Volume Added: Band Size:
== END ==
LOC: BARWHC3 14:24
PROVIDERS: ATTEND Surgery
DX: Z48.815 Encounter for surgical aftercare following surgery on the digestive system (principal); E66.01 Morbid (severe) obesity due to excess calories; Z68.43 Body mass index [BMI] 50.0-59.9, adult
CPT/HCPCS: 99211

== ENCOUNTER → 2021-02-02 | Outpatient (CLI) | payer BC ==
[2021-02-02 14:24] VITALS: BP 143/88; PULSE 71; RESP 16; TEMP 98.5; BMI 55.2
[2021-02-02 15:17] LABS: HCT 38.5 % (34.0-46.0); HGB 13.1 gm/dL (11.4-16.0); MCH 27.4 pg (25.0-35.0); MCHC 34.1 g/dL (31.0-37.0); MCV 80.3 fL (80.0-100.0); Mean Platelet Volume 7.6; Platelet Count 219 k/uL (150-450); RBC 4.79 m/uL (3.80-5.40); RDW 14.7 % (11.5-15.5); WBC 7.2 k/uL (3.8-10.6)
--- NOTE | 2021-02-02 21:23 | P.BASOAP ---
Subjective Progress Note Date: 02/02/21 Principal diagnosis: Morbid obesity Patient returns for reevaluation. Doing well since last visit 01/12. She has lost 11 pounds since then. She was seen by the dietitian today. Ingesting 70 g of protein daily. She is due for one month labs. No nausea. No vomiting. Mild reflux. Still on and antacids. Some constipation. Denies pain. Objective - Vital Signs Vital signs: Vital Signs Temp 98.5 F 02/02/21 14:22 Pulse 71 02/02/21 14:22 Resp 16 02/02/21 14:22 BP 143/88 02/02/21 14:22 Pulse Ox Intake & Output 02/02/21 02/02/21 02/03/21 06:59 18:59 06:59 Weight 159.92 kg - Exam Abdomen: Soft, nondistended, nontender, incisions clean and dry - Labs CBC & Chem 7: 02/02/21 14:49 Assessment/Plan (1) Morbid obesity with BMI of 60.0-69.9, adult Narrative/Plan: Patient doing well at this time. Continue dietary and weight loss program. Chris jiménez one month labs at this time. Return visit in 4-6 weeks. Plan: Date: 02/02/21 Initial Weight: 173.726 kg Initial BMI: 60.0 Current Weight: 159.92 kg Current BMI: 55.2 Type of Surgery: Total Volume in Band: Previous Volume: Volume Removed: Volume Added: Band Size:
[2021-02-02 22:35] LABS: African American GFR (CKD) 118.9 (60.0-200.0); Albumin 4.2 g/dL (3.80-4.90); Albumin/Globulin Ratio 1.75 (1.60-3.17); Anion Gap 7.9 mmol/L (4.00-12.00); BUN/Creat Ratio 33.33 Ratio (12.00-20.00); Calcium 9.5 mg/dL (8.7-10.3); Carbon Dioxide 26.1 mmol/L (21.6-31.8); Globulin 2.4 g/dL (1.6-3.3); Non-African American GFR(CKD) 102.6 (60.0-200.0); Potassium 3.9 mmol/L (3.5-5.5); Total Bilirubin 0.7 mg/dL (0.2-1.2); Total Protein 6.6 g/dL (6.2-8.2)
== END ==
LOC: BARWHC3 13:23
PROVIDERS: ATTEND Surgery
DX: E66.01 Morbid (severe) obesity due to excess calories (principal); K21.9 Gastro-esophageal reflux disease without esophagitis; K59.00 Constipation, unspecified; Z68.43 Body mass index [BMI] 50.0-59.9, adult
CPT/HCPCS: 36415; 80053; 82306; 82607; 82746; 83540; 84425; 85027; 97803; 99211

== ENCOUNTER → 2021-03-16 | Outpatient (CLI) | payer BC ==
[2021-03-16 13:19] VITALS: BP 161/87; PULSE 61; RESP 16; TEMP 98.5; BMI 52.4
--- NOTE | 2021-03-16 13:50 | P.BASOAP ---
Subjective Progress Note Date: 03/16/21 Principal diagnosis: Morbid obesity Patient returns for recheck. Doing well since last visit. Labs were recently drawn showing a slightly low vitamin D and a slightly low iron. Patient states she used to have issues with low iron in the past that has been better lately. Patient is having mild reflux symptoms and remains on antiacid therapy. She has lost 18 pounds since her last visit. Denies pain. No vomiting. Objective - Vital Signs Vital signs: Vital Signs Temp 98.5 F 03/16/21 13:17 Pulse 61 03/16/21 13:17 Resp 16 03/16/21 13:17 BP 161/87 03/16/21 13:17 Pulse Ox Intake & Output 03/15/21 03/16/21 03/16/21 18:59 06:59 18:59 Weight 151.953 kg - Exam Abdomen: Soft, nondistended, nontender Assessment/Plan (1) Morbid obesity with BMI of 60.0-69.9, adult Narrative/Plan: Patient doing well at this time. Continue multivitamin and vitamin D supplementation. We will hold off on additional iron supplementation since the patient has been having issues with constipation still at times. Return visit 6 weeks. Check three-month labs at that time. Plan: Date: 03/16/21 Initial Weight: 173.726 kg Initial BMI: 60.0 Current Weight: 151.953 kg Current BMI: 52.4 Type of Surgery: Total Volume in Band: Previous Volume: Volume Removed: Volume Added: Band Size:
== END ==
LOC: BARWHC3 12:58
PROVIDERS: ATTEND Surgery
DX: E66.01 Morbid (severe) obesity due to excess calories (principal); Z68.43 Body mass index [BMI] 50.0-59.9, adult; Z71.3 Dietary counseling and surveillance
CPT/HCPCS: 99211

== ENCOUNTER → 2021-06-01 | Outpatient (CLI) | payer BC ==
[2021-06-01 14:54] VITALS: BP 127/85; PULSE 62; RESP 16; TEMP 98.4; BMI 49.1
--- NOTE | 2021-06-01 15:09 | P.BASOAP ---
Subjective Progress Note Date: 06/01/21 Principal diagnosis: Morbid obesity Patient returns for reevaluation. Doing well since last visit. She says she has lost some motivation since her last visit. She is still losing weight. She has lost almost 20 pounds since her last visit. Still feels restriction. No GERD symptoms. No nausea or vomiting. She is due for blood work. Objective - Vital Signs Vital signs: Vital Signs Temp 98.4 F 06/01/21 14:52 Pulse 62 06/01/21 14:52 Resp 16 06/01/21 14:52 BP 127/85 06/01/21 14:52 Pulse Ox Intake & Output 05/31/21 06/01/21 06/01/21 18:59 06:59 18:59 Weight 142.428 kg - Exam Abdomen: Soft, nontender, nondistended Assessment/Plan (1) Morbid obesity with BMI of 60.0-69.9, adult Narrative/Plan: Patient doing well after sleeve gastrectomy in December of this year. We'll see dietary today. We'll check three-month labs. Previously was low and vitamin D and iron. She had stopped her iron supplementation because of constipation. Patient will try keeping a food diary and will inform us as to her protein and caloric intake next visit. Follow-up 4-6 weeks. Plan: Date: 06/01/21 Initial Weight: 173.726 kg Initial BMI: 60.0 Current Weight: 142.428 kg Current BMI: 49.1 Type of Surgery: Total Volume in Band: Previous Volume: Volume Removed: Volume Added: Band Size:
[2021-06-01 16:10] LABS: HCT 40.4 % (34.0-46.0); HGB 13.6 gm/dL (11.4-16.0); MCH 27.6 pg (25.0-35.0); MCHC 33.6 g/dL (31.0-37.0); MCV 82.3 fL (80.0-100.0); Mean Platelet Volume 7.9; Platelet Count 235 k/uL (150-450); RBC 4.91 m/uL (3.80-5.40); RDW 13.4 % (11.5-15.5); WBC 8.9 k/uL (3.8-10.6)
[2021-06-02 07:46] LABS: African American GFR (CKD) 99.7 (60.0-200.0); Albumin 4.2 g/dL (3.8-4.9); Albumin/Globulin Ratio 1.62 (1.60-3.17); Anion Gap 16.7 mmol/L (4.00-12.00); BUN/Creat Ratio 25.74 Ratio (12.00-20.00); Calcium 10.1 mg/dL (8.7-10.3); Carbon Dioxide 20.4 mmol/L (21.6-31.8); Folate, Serum 9.8 ng/mL (4.40-31.00); Globulin 2.6 g/dL (1.6-3.3); Potassium 4.4 mmol/L (3.5-5.5); Total Bilirubin 0.5 mg/dL (0.30-1.20); Total Protein 6.9 g/dL (6.2-8.2)
[2021-06-03 11:51] LABS: Vit B1(Thiamine) 62 ug/L (38-122)
== END ==
LOC: BARWHC3 14:42
PROVIDERS: ATTEND Surgery
DX: E66.01 Morbid (severe) obesity due to excess calories (principal); Z68.42 Body mass index [BMI] 45.0-49.9, adult; Z98.84 Bariatric surgery status
CPT/HCPCS: 36415; 80053; 82306; 82607; 82746; 83540; 84255; 84425; 85027; 97803; 99211

== ENCOUNTER → 2021-10-12 | Outpatient (CLI) | payer BC ==
[2021-10-12 15:02] VITALS: BP 144/70; PULSE 55; RESP 16; TEMP 98.2; BMI 46.8
--- NOTE | 2021-10-12 15:27 | P.BASOAP ---
Subjective Progress Note Date: 10/12/21 Principal diagnosis: morbid obesity Patient returns for reevaluation. She was last seen in May. At that time the patient had 3 month labs done showing a normal iron and a low vitamin D. Since then patient has done fairly well. She did have Covid in July and had significant fatigue and headaches for quite some time after that. That has improved. The patient lately has been having some right-sided pain which radiates around to the back. She says she has a history of known gallstones. She had an ultrasound ordered that was postponed with being rescheduled. Patient no longer taking antiacids. She has had some heartburn. She has lost 15 pounds since her last visit. Objective - Vital Signs Vital signs: Vital Signs Temp 98.2 F 10/12/21 15:00 Pulse 55 L 10/12/21 15:00 Resp 16 10/12/21 15:00 BP 144/70 10/12/21 15:00 Pulse Ox Intake & Output 10/11/21 10/12/21 10/12/21 18:59 06:59 18:59 Weight 135.624 kg - Exam Abdomen: Soft, nontender, nondistended Assessment/Plan (1) Morbid obesity with BMI of 60.0-69.9, adult Narrative/Plan: Patient doing fairly well at this time. Suspect patient may be suffering from some chronic cholecystitis/symptomatic cholelithiasis. Await repeat ultrasound. We'll check 6 month labs at this time. We will provide refill for omeprazole. Follow-up 6 weeks. Plan: Date: 10/12/21 Initial Weight: 173.726 kg Initial BMI: 60.0 Current Weight: 135.624 kg Current BMI: 46.8 Type of Surgery: Total Volume in Band: Previous Volume: Volume Removed: Volume Added: Band Size:
[2021-10-13 01:29] LABS: African American GFR (CKD) 107.4 (60.0-200.0); Albumin 4.2 g/dL (3.8-4.9); Albumin/Globulin Ratio 1.67 (1.60-3.17); Anion Gap 12.5 mmol/L (10.00-18.00); BUN/Creat Ratio 30.58 Ratio (12.00-20.00); Blood Urea Nitrogen 22.2 mg/dL (9.0-27.0); Calcium 10.1 mg/dL (8.7-10.3); Carbon Dioxide 25.4 mmol/L (20.0-27.5); Globulin 2.5 g/dL (1.6-3.3); Non-African American GFR(CKD) 92.7 (60.0-200.0); Potassium 4.8 mmol/L (3.5-5.5); Total Bilirubin 0.3 mg/dL (0.30-1.20); Total Protein 6.6 g/dL (6.2-8.2)
[2021-10-13 01:52] LABS: HCT 41.4 % (37.2-46.3); MCHC 31.4 g/dL (32.0-37.0); MCV 85.9 fL (80.0-97.0); Mean Platelet Volume 10.1 fL (9.5-12.2); NRBC Per 100 WBC 0 /100 WBCS (0.0-0.0); Platelet Count 325 X 10*3/uL (140-440); RBC 4.82 X 10*6/uL (4.10-5.20); WBC 10.74 X 10*3/uL (4.50-10.00)
[2021-10-13 02:23] LABS: Folate, Serum 10.1 ng/mL (4.40-31.00)
== END ==
LOC: BARWHC3 14:42
PROVIDERS: ATTEND Surgery
DX: E66.01 Morbid (severe) obesity due to excess calories (principal); K90.89 Other intestinal malabsorption; E55.9 Vitamin D deficiency, unspecified; Z68.42 Body mass index [BMI] 45.0-49.9, adult
CPT/HCPCS: 80053; 82306; 82607; 82746; 83540; 84425; 85027; 99211

== ENCOUNTER → 2021-12-13 | Day surgery (SDC) | payer BC ==
[2021-12-09 12:53] VITALS: BMI 43.9
[~2021-12-13] MED LIST changes: +ACETAMINOPHEN IV (For NPO) 1,000 MG/100 ML VIAL ONE; +ACETAMINOPHEN TAB 500 MG TAB ONE; -ACETAMINOPHEN TAB 500 MG TAB PO PRN; +BUPIVACAIN-EPI 0.25%-1:200,000 30 ML VIAL ONE; +DEXAMETHASONE SOD PHOSPHATE 4 MG/ML 1 ML VIAL ONE; -ENOXAPARIN 40 MG/0.4 ML SYRINGE SQ PRN; +GLYCOPYRROLATE 0.2 MG/ML 2 ML VIAL ONE; +HEPARIN SODIUM,PORCINE 5,000 UNIT/ML 1 ML VIAL ONE; +HEPARIN SODIUM,PORCINE/PF 5,000 UNIT/0.5 ML SYRINGE SQ ONE; +HYDROmorphone (PF) 1 MG/ML ONE; -HYDROmorphone 0.5 MG/0.5 ML SYRINGE IVP PRN; +IV FLUID CONTINUATION 300 ML IV ONE; +LACTATED RINGERS 1,000 ML BAG IV ONE; +LACTATED RINGERS 1,000 ML IV ONE; +LIDOCAINE 1% (10MG/ML) FOR IV START ONE; +LIDOCAINE 2% INJ 20 MG/ML (2 ML VIAL) ONE; -MIDAZOLAM 2 MG/2 ML VIAL IV PRN; +MIDAZOLAM 2 MG/2 ML VIAL ONE; +NEOSTIGMINE 1 MG/ML 10 ML VIAL ONE; -ONDANSETRON 4 MG/2 ML VIAL IVP PRN; +ONDANSETRON 4 MG/2 ML VIAL ONE; +PHENYLEPHRINE-0.9% NACL SYG 1,000 MCG/10 ML SYRINGE ONE; +PROPOFOL 10 MG/ML 20 ML VIAL IV ONE; +ROCURONIUM 10 MG/ML (5 ML VIAL) IV ONE
[2021-12-13 12:51] VITALS: BP 122/81; PULSE 61; RESP 14
--- NOTE | 2021-12-13 13:10 | OP ---
OPERATIVE REPORT DATE OF SERVICE: 12/13/2021 PREOP DIAGNOSIS: Chronic cholecystitis. POSTOP DIAGNOSIS: Hr cholecystitis. PROCEDURES: Laparoscopic cholecystectomy. ANESTHESIA: General. SURGEON: Dr. Alexander. COMPLICATIONS: None. OPERATIVE PROCEDURE: The patient was brought and placed on the operating table in the supine position. The patient was placed under general anesthesia. The abdomen was prepped and draped sterilely. A 5 mm trocar was used into the peritoneal cavity in the right upper quadrant. Full insufflation took place up to 15 mmHg. Additional 5 mm trocar was placed in the right upper quadrant laterally and a 5 mm trocar at the infraumbilical location. A 12 mm epigastric trocar was placed. The patient's gallbladder was grasped and retracted superiorly and laterally. The peritoneum overlying the infundibulum was bluntly dissected. The critical view of safety was obtained. The cystic duct was divided after placement of 2 clips on the patient's side and 1 clip on the specimen side. The adjacent cyst artery was divided in a similar fashion. The patient had a small vessel posterior to that that was clipped as well. The gallbladder was removed from the liver bed using electrocautery. This was then removed from the epigastric trocar site with an EndoCatch bag. The gallbladder fossa was irrigated. There was no bleeding or biliary drainage seen. The epigastric fascial opening was closed using [id number] 0 Vicryl suture. The skin at all 4 sites was closed using 4 Monocryl suture. The skin sterile dressings were applied. MMODL / IJN: [id number] /
== END | disposition home or self-care (01) ==
LOC: OR 06:09
PROVIDERS: ATTEND Surgery
DX: K81.1 Chronic cholecystitis (principal); J45.909 Unspecified asthma, uncomplicated; F32.A Depression, unspecified; E66.01 Morbid (severe) obesity due to excess calories; Z79.899 Other long term (current) drug therapy
CPT/HCPCS: 47562; 88304; J2250; J1644; J1100; J2710; J2405; J1170; J0131; J2370; J2704; J2001

== ENCOUNTER → 2021-12-30 | Outpatient (CLI) | payer BC ==
[2021-12-30 13:32] VITALS: BP 121/79; PULSE 59; RESP 16; TEMP 98.3; BMI 46.0
--- NOTE | 2021-12-30 13:36 | P.BASOAP ---
Subjective Progress Note Date: 12/30/21 Principal diagnosis: Chronic cholecystitis, morbid obesity Patient returns after recent cholecystectomy 1.5 weeks ago. Overall doing well. Complaining of mild discomfort. Gradually improving. He did have some loose stools with [place]. Still having some itching at the incision sites. Patient is also one year post sleeve gastrectomy. Remains on omeprazole for mild reflux symptoms. Says she has been having some concerns about returning to that habits. She is eating slightly more than she used to. Still eats about one third of what she ate prior to her sleeve gastrectomy. Has been decreasing her exercise recently. Objective - Vital Signs Vital signs: Vital Signs Temp 98.3 F 12/30/21 13:17 Pulse 59 L 12/30/21 13:17 Resp 16 12/30/21 13:17 BP 121/79 12/30/21 13:17 Pulse Ox Intake & Output 12/29/21 12/30/21 12/30/21 18:59 06:59 18:59 Weight 133.356 kg - Exam Abdomen: Soft, nondistended, incisions clean and dry, minimal tenderness Assessment/Plan (1) Morbid obesity with BMI of 60.0-69.9, adult Narrative/Plan: Patient doing well at this time. Continue dietary and exercise regimen. May resume normal activities from a gallbladder surgery point of view. Continue antiacid therapy. Check one year labs. Follow-up visit 3 months. Plan: Date: 12/30/21 Initial Weight: 173.726 kg Initial BMI: 60.0 Current Weight: 133.356 kg Current BMI: 46.0 Type of Surgery: Total Volume in Band: Previous Volume: Volume Removed: Volume Added: Band Size:
[2021-12-30 18:07] LABS: HCT 39.9 % (37.2-46.3); HGB 12.5 g/dL (12.0-15.0); MCH 26.2 pg (27.0-32.0); MCHC 31.3 g/dL (32.0-37.0); MCV 83.6 fL (80.0-97.0); Mean Platelet Volume 9.7 fL (9.5-12.2); NRBC Per 100 WBC 0 /100 WBCS (0.0-0.0); Platelet Count 278 X 10*3/uL (140-440); RBC 4.77 X 10*6/uL (4.10-5.20); WBC 8.65 X 10*3/uL (4.50-10.00)
[2021-12-30 18:46] LABS: African American GFR (CKD) 95.5 (60.0-200.0); Albumin 4.1 g/dL (3.8-4.9); Albumin/Globulin Ratio 1.37 (1.60-3.17); Anion Gap 9.7 mmol/L (10.00-18.00); BUN/Creat Ratio 21.63 Ratio (12.00-20.00); Blood Urea Nitrogen 17.3 mg/dL (9.0-27.0); Carbon Dioxide 26.3 mmol/L (20.0-27.5); Non-African American GFR(CKD) 82.4 (60.0-200.0); Potassium 4.6 mmol/L (3.5-5.5); Total Bilirubin 0.4 mg/dL (0.30-1.20); Total Protein 7.1 g/dL (6.2-8.2)
== END ==
LOC: BARWHC3 13:01
PROVIDERS: ATTEND Surgery
DX: E66.01 Morbid (severe) obesity due to excess calories (principal); Z68.42 Body mass index [BMI] 45.0-49.9, adult; K90.89 Other intestinal malabsorption; E55.9 Vitamin D deficiency, unspecified
CPT/HCPCS: 36415; 80053; 82306; 82607; 82746; 83540; 84425; 85027; 99211

== ENCOUNTER → 2022-03-29 | Outpatient (CLI) | payer BC ==
[2022-03-29 15:07] VITALS: BP 116/79; PULSE 57; RESP 16; BMI 46.8
--- NOTE | 2022-03-29 16:56 | P.BASOAP ---
Subjective Progress Note Date: 03/29/22 Principal diagnosis: Morbid obesity Patient returns for recheck. Last seen 12/30. Remains on intermittent antiacids. Has had significant diarrhea since her gallbladder surgery. She is having a colonoscopy by Dr. Montgomery on Monday. She is not exercising because of the occasional episodes of fecal incontinence and diarrhea. She has gained 5 pounds since her last visit. Objective - Vital Signs Vital signs: Vital Signs Temp Pulse 57 L 03/29/22 15:06 Resp 16 03/29/22 15:06 BP 116/79 03/29/22 15:06 Pulse Ox FiO2 Intake & Output 03/28/22 03/29/22 03/29/22 18:59 06:59 18:59 Weight 135.624 kg - Exam Abdomen: Soft, nontender, nondistended Assessment/Plan (1) Morbid obesity with BMI of 60.0-69.9, adult Narrative/Plan: 56-year-old female unfortunately having increased diarrhea which is inhibiting her exercise amount. We will add colestipol for the diarrhea. Await colono scopy next week by GI. Monitor caloric intake. Follow-up 2 months. Will have patient seen by dietary at that time. Continue as needed antiacid therapy. Plan: Date: 03/29/22 Initial Weight: 173.726 kg Initial BMI: 60.0 Current Weight: 135.624 kg Current BMI: 46.8 Type of Surgery: Total Volume in Band: Previous Volume: Volume Removed: Volume Added: Band Size:
== END ==
LOC: BARWHC3 14:45
PROVIDERS: ATTEND Surgery
DX: E66.01 Morbid (severe) obesity due to excess calories (principal); Z68.42 Body mass index [BMI] 45.0-49.9, adult
CPT/HCPCS: 99211

== ENCOUNTER 2022-04-05 07:05 | Day surgery (SDC) | payer BC ==
[2022-03-31 15:40] VITALS: BMI 43.9
[~2022-04-05 07:05] MED LIST changes: -ACETAMINOPHEN IV (For NPO) 1,000 MG/100 ML VIAL ONE; -ACETAMINOPHEN TAB 500 MG TAB ONE; -BUPIVACAIN-EPI 0.25%-1:200,000 30 ML VIAL ONE; -DEXAMETHASONE SOD PHOSPHATE 4 MG/ML 1 ML VIAL ONE; -GLYCOPYRROLATE 0.2 MG/ML 2 ML VIAL ONE; -HEPARIN SODIUM,PORCINE 5,000 UNIT/ML 1 ML VIAL ONE; -HEPARIN SODIUM,PORCINE/PF 5,000 UNIT/0.5 ML SYRINGE SQ ONE; -HYDROmorphone (PF) 1 MG/ML ONE; -IV FLUID CONTINUATION 300 ML IV ONE; -LACTATED RINGERS 1,000 ML BAG IV ONE; -LACTATED RINGERS 1,000 ML IV ONE; +LACTATED RINGERS 1,000 ML IV SCH; -LIDOCAINE 1% (10MG/ML) FOR IV START ONE; -LIDOCAINE 2% INJ 20 MG/ML (2 ML VIAL) ONE; -MIDAZOLAM 2 MG/2 ML VIAL ONE; -NEOSTIGMINE 1 MG/ML 10 ML VIAL ONE; -ONDANSETRON 4 MG/2 ML VIAL ONE; -PHENYLEPHRINE-0.9% NACL SYG 1,000 MCG/10 ML SYRINGE ONE; -PROPOFOL 10 MG/ML 20 ML VIAL IV ONE; -ROCURONIUM 10 MG/ML (5 ML VIAL) IV ONE; -ceFAZolin 3 GM in SODIUM CHLORIDE 0.9% 100 ML IVPB PRN
[2022-04-05 08:35] VITALS: TEMP 97.4
[2022-04-05] MEDS ORDERED: PROPOFOL 10 MG/ML 20 ML VIAL IV ONE (08:58)
[2022-04-05] MEDS ORDERED: LIDOCAINE 2% INJ 20 MG/ML (2 ML VIAL) ONE (08:58)
--- NOTE | 2022-04-05 09:17 | P.PCN ---
Date of Procedure: 04/05/22 Procedure(s) Performed: BRIEF HISTORY: Patient is a 56-year-old pleasant female scheduled for an elective colonoscopy as a part of evaluation of prior history of colon polyps. Her last colonoscopy was 5 years ago. PROCEDURE PERFORMED: Colonoscopy with snare polypectomy. PREOPERATIVE DIAGNOSIS: History of colon polyps. IV sedation per Anesthesia. PROCEDURE: After informed consent was obtained, the patient, was brought into the endoscopy unit. IV sedation was administered by Anesthesia under continuous monitoring. Digital rectal examination was normal. Initially the Olympus CF-160 flexible video colonoscope was then inserted in the rectum, gradually advanced into the cecum without any difficulty. Careful examination was performed as the scope was gradually being withdrawn. Ileocecal valve and the appendiceal orifice were visualized and appeared normal. Prep was excellent. Mucosa of the cecum, ascending colon, transverse colon, appeared normal. There was a 1 flat polyp in the descending colon that was removed by snare polypectomy. Rest of the descending colon, sigmoid colon, and rectum appeared normal. Scattered diffuse diverticulosis seen. Retroflexion was performed in the rectum and no lesions were seen. The patient tolerated the procedure well. IMPRESSION: 1 cm flat descending colon polyp status post polypectomy Scattered diffuse diverticulosis RECOMMENDATIONS: Findings of this examination were discussed with the patient as well as a family. She was advised to follow with the biopsy results and have a repeat colonoscopy in 5 yrs
[2022-04-05 09:51] VITALS: BP 110/77; PULSE 50; RESP 16
== END 2022-04-05 10:05 | disposition home or self-care (01) ==
LOC: ORWHC2ENDO 07:05
PROVIDERS: ATTEND Internal Medicine Gastroenterology
DX: Z12.11 Encounter for screening for malignant neoplasm of colon (principal); K63.5 Polyp of colon; K57.30 Diverticulosis of large intestine without perforation or abscess without bleeding; Z86.010 Personal history of colon polyps; J45.909 Unspecified asthma, uncomplicated; G47.33 Obstructive sleep apnea (adult) (pediatric); K21.9 Gastro-esophageal reflux disease without esophagitis; Z98.84 Bariatric surgery status; Z79.899 Other long term (current) drug therapy; Z87.891 Personal history of nicotine dependence
CPT/HCPCS: 81025; 88305; 45385; J2704; J2001

== ENCOUNTER → 2022-06-14 | Outpatient (CLI) | payer BC ==
[2022-06-15 11:55] VITALS: BMI 46.5
== END | disposition home or self-care (01) ==
LOC: BARWHC3 15:25
PROVIDERS: ATTEND Surgery
DX: Z71.3 Dietary counseling and surveillance (principal); E66.01 Morbid (severe) obesity due to excess calories; Z68.42 Body mass index [BMI] 45.0-49.9, adult
CPT/HCPCS: 97802